=== PATIENT | male | born 1940 | race Caucasian/White ===

== ENCOUNTER 2018-11-01 00:32 | Observation (INO) | payer MEDICARE, OTHER ==
[2018-11-01 00:53] LABS: ADD MAN DIFF? NO
[2018-11-01 00:57] LABS: WHITE BLOOD COUNT 8.1 10^3/ul (4.8-10.8)
[2018-11-01 00:57] LABS: BASOPHIL # 0.1 10^3/ul (0.0-0.1); BASOPHILS % 0.7 % (0.0-2.0); EOSINOPHILS # 0.3 10^3/ul (0.0-0.5); EOSINOPHILS % 3.8 % (0.0-7.0); HEMATOCRIT 41.2 % (42.0-52.0); HEMOGLOBIN 14.2 g/dl (14.0-18.0); LYMPHOCYTES # 3.5 10^3/ul (0.8-2.9); LYMPHOCYTES % 42.9 % (15.0-51.0); MEAN CORPUSCULAR HEMOGLOBIN 30.5 pg (29.0-33.0); MEAN CORPUSCULAR HGB CONC 34.5 g/dl (32.0-37.0); MEAN CORPUSCULAR VOLUME 88.6 fl (82.0-101.0); MEAN PLATELET VOLUME 8.9 fl (7.4-10.4); MONOCYTE # 0.6 10^3/ul (0.3-0.9); MONOCYTES % 7.4 % (0.0-11.0); NEUTROPHIL # 3.6 10^3/ul (1.6-7.5); PLATELET COUNT 171 10^3/UL (140-415); RED BLOOD COUNT 4.65 10^6/ul (4.70-6.10); RED CELL DISTRIBUTION WIDTH 12.8 % (11.5-14.5)
[2018-11-01 01:15] LABS: ANION GAP 6 (5-13); BLOOD UREA NITROGEN 18 mg/dl (7-20); CALCIUM 9.1 mg/dl (8.4-10.2); CARBON DIOXIDE 29 mmol/L (21-31); CHLORIDE 104 mmol/L (97-110); CREATININE 0.85 mg/dl (0.61-1.24); GLUCOSE 125 mg/dl (70-220); POTASSIUM 3.9 mmol/L (3.5-5.1); SODIUM 139 mmol/L (135-144)
[2018-11-01] MEDS: SOD CHLORIDE 0.9% 500 ML IV (01:16)
[2018-11-01 01:18] LABS: INR 1.03; PROTIME 13.6 Sec (11.9-14.9); PT RATIO 1.1
[2018-11-01 01:19] LABS: PARTIAL THROMBOPLASTIN TIME 25.1 Sec (23.0-35.0)
[2018-11-01 01:26] LABS: TROPONIN-I < 0.012 ng/ml (0.000-0.120)
[2018-11-01] MEDS: morphine 4 MG/ML VIAL IV (03:20)
[2018-11-01] MEDS: ONDANSETRON 4 MG INJ IV (03:20)
[2018-11-01] MEDS ORDERED: NON-FORMULARY/PATIENT OWN MED (Losartan-Hydrochlorothiazide (Losartan-HCTZ) 1 TAB) PO (09:00)
[2018-11-01] MEDS: ASPIRIN (EC) 81 MG TAB PO (09:58)
[2018-11-01] MEDS: CLOPIDOGREL 75 MG TAB PO (09:58)
[2018-11-01] MEDS ORDERED: ACETAMINOPHEN 325 MG TAB PO (10:00)
[2018-11-01] MEDS ORDERED: ONDANSETRON 4 MG INJ IV (10:00)
[2018-11-01 10:43] LABS: TROPONIN-I < 0.012 ng/ml (0.000-0.120)
[2018-11-01] MEDS: LOSARTAN 50 MG TAB PO (10:52)
[2018-11-01] MEDS: LUBIPROSTONE 24 MCG CAP PO ×2 (10:53→20:42)
[2018-11-01] MEDS: HYDROCHLOROTHIAZIDE 12.5 MG CAP PO (10:53)
[2018-11-01 15:48] LABS: TROPONIN-I < 0.012 ng/ml (0.000-0.120)
[2018-11-01] MEDS: REGADENOSON 0.4 MG/5 ML SYG (17:05)
[2018-11-01] MEDS: ATORVASTATIN 20 MG TAB PO (20:42)
[2018-11-01] MEDS ORDERED: ZOLPIDEM 5 MG TAB PO (21:00)
[2018-11-02] MEDS: LUBIPROSTONE 24 MCG CAP PO (09:33)
[2018-11-02] MEDS: HYDROCHLOROTHIAZIDE 12.5 MG CAP PO (09:33)
[2018-11-02] MEDS: CLOPIDOGREL 75 MG TAB PO (09:34)
[2018-11-02] MEDS: LOSARTAN 50 MG TAB PO (09:34)
[2018-11-02] MEDS: ASPIRIN (EC) 81 MG TAB PO (09:34)
== END 2018-11-02 14:01 | disposition home or self-care (01) ==
LOC: E/R 00:32 → 6WM 02:19
DX: R07.89 Other chest pain (principal); R55 Syncope and collapse; I25.10 Atherosclerotic heart disease of native coronary artery without angina pectoris; Z95.5 Presence of coronary angioplasty implant and graft; I10 Essential (primary) hypertension; E78.5 Hyperlipidemia, unspecified; K59.00 Constipation, unspecified; Z79.02 Long term (current) use of antithrombotics/antiplatelets; Z79.82 Long term (current) use of aspirin; Z87.891 Personal history of nicotine dependence
CPT/HCPCS: 36415; 70450; 71045; 78452; 80048; 82962; 84484; 85025; 85610; 85730; 93005; 93017; 93306; 99217; 99285-25